=== PATIENT | female | born 1935 | race Two or more races ===

== ENCOUNTER 2018-02-08 06:24 | Inpatient (IN) | payer OTHER ==
[~2018-02-08] VITALS: Ht 167.6 cm; Wt 80.9 kg
[~2018-02-08 06:24] MED LIST: ADA60 PO; ECO81 PO; LEVEMIR; NOVOLOG
[2018-02-08 06:27] VITALS: Ht 167.6 cm; Wt 80.9 kg
[2018-02-08] MEDS ORDERED: CAVERJECT IMPU IC (07:13)
[2018-02-08] MEDS ORDERED: CALCIUM CITRATE1 TA1 (07:14)
[2018-02-08] MEDS ORDERED: GOOD SENSE OMEP20 MG PO (07:16)
[2018-02-08] MEDS ORDERED: ISOSORBIDE MON120 MG PO (07:17)
[2018-02-08] MEDS ORDERED: CARAFATE1 GM PO (07:17)
[2018-02-08] MEDS ORDERED: FUROSEMIDE40 MG PO (07:18)
[2018-02-08] MEDS ORDERED: NITROSTAT0.4 MG (07:18)
[2018-02-08] MEDS ORDERED: CLOPIDOGREL75 M1 PO (07:19)
[2018-02-08] MEDS ORDERED: ATORVASTATIN CA40 M1 PO (07:19)
[2018-02-08] MEDS ORDERED: HYDRALAZINE HY100 MG PO (07:19)
[2018-02-08 07:34] LABS: BASOPHIL % 0.3 % (0-2); PLATELET COUNT 159 x10^3mcL (130-400); RED CELL DISTRIBUTION WIDTH 13.8 % (11.5-14.5)
[2018-02-08 08:17] LABS: CALCIUM 8.2 mg/dL (8.5-10.1); CARBON DIOXIDE 26.2 mmol/L (21-32); CHLORIDE SERUM 105 mmol/L (98-107); CREATININE SERUM 2.3 mg/dL (0.6-1.0); GLUCOSE SERUM 287 mg/dL (74-106); POTASSIUM SERUM 3.9 mmol/L (3.5-5.1); SODIUM SERUM 140 mmol/L (136-145)
[2018-02-08 08:25] LABS: ALKALINE PHOSPHATASE 81 U/L (46-116); ALT/SGPT 16 U/L (14-59); AST/SGOT 13 U/L (15-37); BILIRUBIN TOTAL 0.4 mg/dL (0.20-1.00); TOTAL PROTEIN, SERUM 6.9 g/dL (6.4-8.2)
[2018-02-08 09:56] VITALS: BP 133/61
[2018-02-08 10:15] LABS: MAGNESIUM 1.9 mg/dL (1.8-2.4); PHOSPHOROUS 4.4 mg/dL (2.5-4.9)
[2018-02-08 10:21] LABS: CHOLESTEROL/HDL RATIO 2.8
[2018-02-08 10:24] LABS: FREE T4 1.07 ng/dL (0.76-1.46); FREE THYROXINE INDEX 1.9 ug/dL (1.4-4.5); T4(THYROXINE) 5.5 ug/dL (4.7-13.3)
[2018-02-08 10:52] VITALS: BP 133/61
[2018-02-08 12:00] LABS: T3 TOTAL 0.98 ng/mL
[2018-02-08 12:58] VITALS: BP 181/46
[2018-02-08 16:26] LABS: microscopic required? YES; urine erythrocyte TRACE (NEGATIVE)
[2018-02-08 16:34] LABS: AMPHETAMINE QUAL UR NONE DETECTED (See below)
[2018-02-08 17:43] LABS: IRON 48 ug/dL (50-170)
[2018-02-08 17:44] LABS: TOTAL IRON BINDING CAPACITY 199 ug/dL (250-450)
[2018-02-08 20:44] VITALS: BP 181/67
[2018-02-08 22:51] VITALS: BP 142/46
[2018-02-09 05:44] VITALS: BP 171/58
[2018-02-09 06:58] LABS: CALCIUM 8.5 mg/dL (8.5-10.1); CARBON DIOXIDE 26.6 mmol/L (21-32); CHLORIDE SERUM 107 mmol/L (98-107); CREATININE SERUM 1.9 mg/dL (0.6-1.0); GLUCOSE SERUM 102 mg/dL (74-106); POTASSIUM SERUM 3.5 mmol/L (3.5-5.1); SODIUM SERUM 145 mmol/L (136-145)
[2018-02-09 07:00] LABS: BASOPHIL % 0.5 % (0-2); PLATELET COUNT 151 x10^3mcL (130-400)
[2018-02-09 07:25] LABS: RED CELL DISTRIBUTION WIDTH 14.9 % (11.5-14.5)
[2018-02-09 09:30] VITALS: BP 179/61
[2018-02-09 13:31] VITALS: BP 160/47
[2018-02-09 17:44] VITALS: BP 140/57
[2018-02-09 21:03] VITALS: BP 141/49
[2018-02-10 05:52] VITALS: BP 145/50
[2018-02-10 06:02] LABS: BASOPHIL % 0.3 % (0-2); PLATELET COUNT 144 x10^3mcL (130-400); RED CELL DISTRIBUTION WIDTH 14.5 % (11.5-14.5)
[2018-02-10 06:19] LABS: CALCIUM 8.2 mg/dL (8.5-10.1); CARBON DIOXIDE 25.8 mmol/L (21-32); CHLORIDE SERUM 106 mmol/L (98-107); CREATININE SERUM 2.1 mg/dL (0.6-1.0); GLUCOSE SERUM 226 mg/dL (74-106); POTASSIUM SERUM 3.4 mmol/L (3.5-5.1); SODIUM SERUM 142 mmol/L (136-145)
[2018-02-10 08:23] VITALS: BP 161/61
[2018-02-10 12:16] VITALS: BP 141/43
[2018-02-10] MEDS ORDERED: METOPROLOL TART25 M1 PO (13:26)
[2018-02-10] MEDS ORDERED: ADA30 PO (13:26)
[2018-02-10] MEDS ORDERED: LEVAQUIN750 MG PO (13:29)
[2018-02-10 13:59] VITALS: BP 141/43
== END 2018-02-10 15:54 | disposition home or self-care (01) | DRG 280 ==
LOC: ED → EDBD 06:24 → ED 06:24 → DU 08:35
PROVIDERS: Emergency Medicine; General Practice; Internal Medicine
DX: I21.4 Non-ST elevation (NSTEMI) myocardial infarction (principal); J96.00 Acute respiratory failure, unspecified whether with hypoxia or hypercapnia; I50.43 Acute on chronic combined systolic (congestive) and diastolic (congestive) heart failure; N17.0 Acute kidney failure with tubular necrosis; I16.1 Hypertensive emergency; N39.0 Urinary tract infection, site not specified; E44.0 Moderate protein-calorie malnutrition; I11.0 Hypertensive heart disease with heart failure; E11.65 Type 2 diabetes mellitus with hyperglycemia; I25.5 Ischemic cardiomyopathy; K21.9 Gastro-esophageal reflux disease without esophagitis; E03.9 Hypothyroidism, unspecified; D64.9 Anemia, unspecified; Z68.34 Body mass index [BMI] 34.0-34.9, adult
CPT/HCPCS: 36600; 83880; 84439; 85378; 97535-GP; A9540; J0696; J1650; J1940; J7050; J7620; Q0092

== ENCOUNTER 2018-05-01 05:18 | Inpatient (IN) | payer MEDICARE, OTHER ==
[~2018-05-01] VITALS: Ht 152.4 cm; Wt 74.8 kg
[~2018-05-01 05:18] MED LIST changes: +ADA30 PO; +ATORVASTATIN CA40 M1 PO; +CALCIUM CITRATE1 TA1; +CARAFATE1 GM PO; +CAVERJECT IMPU IC; +CLOPIDOGREL75 M1 PO; +FUROSEMIDE40 MG PO; +GOOD SENSE OMEP20 MG PO; +HYDRALAZINE HY100 MG PO; +ISOSORBIDE MON120 MG PO; +LEVAQUIN750 MG PO; +METOPROLOL TART25 M1 PO; +NITROSTAT0.4 MG
[2018-05-01 06:13] LABS: CALCIUM 8.6 mg/dL (8.5-10.1); CARBON DIOXIDE 28.1 mmol/L (21-32); CHLORIDE SERUM 101 mmol/L (98-107); CREATININE SERUM 2.1 mg/dL (0.6-1.0); GLUCOSE SERUM 236 mg/dL (74-106); POTASSIUM SERUM 4.6 mmol/L (3.5-5.1); SODIUM SERUM 138 mmol/L (136-145)
[2018-05-01 06:16] LABS: BASOPHIL % 0.4 % (0-2); PLATELET COUNT 206 x10^3mcL (130-400)
[2018-05-01 06:18] LABS: ALBUMIN 3.7 g/dL (3.4-5.0); ALKALINE PHOSPHATASE 130 U/L (46-116); ALT/SGPT 9 U/L (14-59); AST/SGOT 38 U/L (15-37); BILIRUBIN TOTAL 0.39 mg/dL (0.20-1.00); TOTAL PROTEIN, SERUM 7.8 g/dL (6.4-8.2)
[2018-05-01] MEDS ORDERED: HUMULIN 70/30 KW3 ML (06:22)
[2018-05-01] MEDS ORDERED: NIT0.4 SL (06:23)
[2018-05-01] MEDS ORDERED: VENTOLIN H0.09 MG/A1 IH (06:23)
[2018-05-01] MEDS ORDERED: CARVEDILOL25 M1 PO (06:24)
[2018-05-01] MEDS ORDERED: K-TAB10 MEQ PO (06:24)
[2018-05-01 06:28] LABS: MAGNESIUM 1.9 mg/dL (1.8-2.4)
[2018-05-01 07:56] LABS: CHOLESTEROL/HDL RATIO 2.3
[2018-05-01 08:03] LABS: FREE T4 0.94 ng/dL (0.76-1.46); FREE THYROXINE INDEX 2.8 ug/dL (1.4-4.5); T3 TOTAL 0.82 ng/mL; T4(THYROXINE) 8.3 ug/dL (4.7-13.3)
[2018-05-01 09:17] VITALS: BP 152/93
[2018-05-01 11:35] VITALS: BP 150/88
[2018-05-01 11:40] VITALS: BP 150/88
[2018-05-01 15:26] VITALS: BP 162/66
[2018-05-01 19:20] VITALS: BP 169/80
[2018-05-01 23:10] VITALS: BP 115/50
[2018-05-02 00:44] LABS: UA SPECIFIC GRAVITY 1.015 (1.005-1.035); microscopic required? YES; urine erythrocyte TRACE (NEGATIVE)
[2018-05-02 03:20] VITALS: BP 158/68
[2018-05-02 05:29] LABS: BASOPHIL % 0.2 % (0-2); CALCIUM 8.3 mg/dL (8.5-10.1); CARBON DIOXIDE 30.2 mmol/L (21-32); CHLORIDE SERUM 101 mmol/L (98-107); CREATININE SERUM 1.5 mg/dL (0.6-1.0); GLUCOSE SERUM 223 mg/dL (74-106); MAGNESIUM 1.6 mg/dL (1.8-2.4); PLATELET COUNT 155 x10^3mcL (130-400); POTASSIUM SERUM 3.8 mmol/L (3.5-5.1); SODIUM SERUM 138 mmol/L (136-145)
[2018-05-02 08:10] VITALS: BP 149/64
[2018-05-02 09:55] VITALS: Ht 152.4 cm; Wt 74.8 kg
[2018-05-02 12:30] VITALS: BP 109/50
[2018-05-02 14:00] VITALS: BP 108/50
[2018-05-02 16:47] VITALS: BP 110/47
[2018-05-02 23:01] VITALS: BP 117/55
[2018-05-03 05:20] VITALS: BP 137/46
[2018-05-03 09:00] VITALS: BP 130/45
[2018-05-03 12:15] VITALS: BP 107/49
[2018-05-03 17:15] VITALS: BP 131/50
[2018-05-03 20:43] VITALS: BP 123/53
[2018-05-04 05:47] VITALS: BP 135/49
[2018-05-04 07:08] LABS: BASOPHIL % 0.5 % (0-2); PLATELET COUNT 166 x10^3mcL (130-400)
[2018-05-04 07:17] LABS: RED CELL DISTRIBUTION WIDTH 17.6 % (11.5-14.5)
[2018-05-04 09:04] LABS: CALCIUM 8.8 mg/dL (8.5-10.1); CARBON DIOXIDE 25.1 mmol/L (21-32); CHLORIDE SERUM 97 mmol/L (98-107); GLUCOSE SERUM 282 mg/dL (74-106); POTASSIUM SERUM 3.5 mmol/L (3.5-5.1); SODIUM SERUM 135 mmol/L (136-145)
[2018-05-04 09:07] LABS: CREATININE SERUM 4.8 mg/dL (0.6-1.0)
[2018-05-04 09:47] VITALS: BP 146/80
[2018-05-04 11:19] VITALS: BP 146/80
[2018-05-04 12:09] VITALS: BP 132/48
[2018-05-04 17:10] VITALS: BP 140/48
[2018-05-04 20:47] VITALS: BP 133/47
[2018-05-05 05:04] VITALS: BP 143/46
[2018-05-05 10:01] VITALS: BP 143/44
[2018-05-05 11:56] VITALS: BP 141/69
[2018-05-05 11:58] VITALS: BP 148/61
[2018-05-05] MEDS ORDERED: AUG500 PO (14:29)
[2018-05-05 16:14] VITALS: BP 140/63
[2018-05-05 21:50] VITALS: BP 147/63
== END 2018-05-05 22:12 | disposition home or self-care (01) | DRG 871 ==
LOC: ED 05:18 → DU 06:39 → IC 06:39 → DU 05-02 13:54
PROVIDERS: Student in an Organized Health Care Education/Training Program; ADMIT Internal Medicine
DX: A41.9 Sepsis, unspecified organism (principal); J69.0 Pneumonitis due to inhalation of food and vomit; J96.01 Acute respiratory failure with hypoxia; N17.0 Acute kidney failure with tubular necrosis; N18.6 End stage renal disease; I50.33 Acute on chronic diastolic (congestive) heart failure; E87.1 Hypo-osmolality and hyponatremia; I13.2 Hypertensive heart and chronic kidney disease with heart failure and with stage 5 chronic kidney disease, or end stage renal disease; J44.1 Chronic obstructive pulmonary disease with (acute) exacerbation; E87.70 Fluid overload, unspecified; E11.22 Type 2 diabetes mellitus with diabetic chronic kidney disease; E11.65 Type 2 diabetes mellitus with hyperglycemia; G47.33 Obstructive sleep apnea (adult) (pediatric); R74.0 Nonspecific elevation of levels of transaminase and lactic acid dehydrogenase [LDH]; Z68.26 Body mass index [BMI] 26.0-26.9, adult; Z99.2 Dependence on renal dialysis; Z79.4 Long term (current) use of insulin; Z95.5 Presence of coronary angioplasty implant and graft
CPT/HCPCS: 82962; 83880; 84439; 94150; 97110-GP; 97116-GP; J1644; J1940; J2543; J7030; J7040; J7620; P9047; Q0092